=== PATIENT | female | born 1935 | race Caucasian/White ===

== ENCOUNTER 2020-06-16 08:26 | Inpatient (IN) | payer MEDICARE, BC ==
[2020-06-14 11:27] VITALS: BMI 24.4
[~2020-06-16 08:26] MED LIST: DEXAMETHASONE SOD PHOSPHATE 10 MG/ML 1 ML VIAL IV ONE; LACTATED RINGERS 1,000 ML IV SCH; LIDOCAINE 1% (10MG/ML) FOR IV START INTRADERMA PRN; ONDANSETRON 4 MG/2 ML VIAL IVP ONE
[2020-06-16] MEDS ORDERED: PHENAZOPYRIDINE 200 MG TAB PO ONE (10:00)
[2020-06-16] MEDS ORDERED: DEXTROSE 10% IN WATER 500 ML IV ONE (11:00)
[2020-06-16] MEDS ORDERED: fentaNYL (PF) 50 MCG/ML 2 ML AMP ONE (11:14)
[2020-06-16] MEDS ORDERED: FUROSEMIDE 10 MG/ML 2 ML VIAL ONE (11:14)
[2020-06-16] MEDS ORDERED: PROPOFOL 10 MG/ML 20 ML VIAL IV ONE (11:14)
[2020-06-16] MEDS ORDERED: ePHEDrine SULFATE/0.9% NACL/PF 50 MG/5 ML SYRINGE IV ONE (11:14)
[2020-06-16] MEDS ORDERED: MIDAZOLAM 2 MG/2 ML VIAL ONE (11:14)
[2020-06-16] MEDS ORDERED: LIDOCAINE 0.5%-EPI 1:200,000 50 ML VIAL SQ ONE ×2 (11:55)
[2020-06-16] MEDS ORDERED: LACTATED RINGERS 1,000 ML IV ONE (12:20)
[2020-06-16] MEDS ORDERED: BACITRACIN ZINC 500 UNIT/GM OINT 28.4 GM TUBE TOPICAL ONE (12:57)
[2020-06-16] MEDS ORDERED: ONDANSETRON 4 MG/2 ML VIAL IVP PRN (13:31)
[2020-06-16] MEDS ORDERED: METOCLOPRAMIDE 5 MG/ML 2 ML VIAL IVP PRN (13:31)
[2020-06-16] MEDS ORDERED: Acetaminophen-Codeine 300-30mg TAB PO PRN (13:31)
[2020-06-16] MEDS ORDERED: IBUPROFEN 600 MG TAB PO PRN (13:31)
[2020-06-16] MEDS ORDERED: HYDROmorphone 0.5 MG/0.5 ML SYRINGE IVP ONE ×2 (13:37→13:53)
[2020-06-16] MEDS ORDERED: ONDANSETRON 4 MG/2 ML VIAL IVP ONE (13:38)
[2020-06-16] MEDS ORDERED: SENNOSIDES 8.6 MG TAB PO PRN (13:41)
[2020-06-16] MEDS ORDERED: ACETAMINOPHEN TAB 500 MG TAB PO PRN (13:41)
[2020-06-16] MEDS ORDERED: MORPHINE SULFATE 2 MG/ML SYRINGE IVP PRN (13:42)
--- NOTE | 2020-06-16 14:11 | P.OP ---
Date of Procedure: 06/16/20 Anesthesia: spinal Description of Procedure: OP REPORT: TVH, BSO, Vaginal Uterosacral Ligament Suspension, TOT SLING PREOPERATIVE DIAGNOSES: 1. Uterovaginal Prolapse stage 3. 2. Mixed Incontinence (MARILYN + DI) POSTOPERATIVE DIAGNOSES: 1. same. PROCEDURE PERFORMED: Total vaginal hysterectomy / BSO / Uterosacral Ligament Suspension / TOT Sling SURGEON: Jose Padilla MD, [place] IN[employer]UMENTATION ENGINEERING TECHNICIAN: LIZZIE ANESTHESIA: SAB IV FLUIDS: crystalloids. BLOOD LOSS: 75 ml. DRAINS: Guevara catheter with clear urine at the end of the procedure. COMPLICATIONS: None. FINDINGS: Uterovaginal Prolapse. SPECIMEN: Uterus and cervix, Tubes and ovaries sent to Pathology. DISPOSITION: Postanesthetic Care Unit. DESCRIPTION OF PROCEDURE: The patient was brought to the operating room in good condition and adequate general anesthetic was obtained. The patient was positioned in the dorsal lithotomy position then prepped and draped in usual sterile fashion. The weighted speculum was placed in the posterior aspect of the vagina. The Guevara catheter was then inserted under sterile conditions and allowed to drain into a closed system throughout the procedure. The right-angle retractor was then placed and the anterior and posterior lips of the cervix were grasped with single-tooth tenaculum. The cervix was injected with Lidocaine with 1/200,000 epinephrine circumferentially. The uterus was mobilized downward. Care was taken to note the fold in the vaginal fornixes. Electrocautery was used to circumcise the cervix at the level of this fornix fold. The incision was carried all the way around the cervix. The remainder of the vaginal mucosa was dissected off the cervix by sharp dissection. In the posterior cul-de-sac, the peritoneum was entered with the Mullins scissors. This was spread bluntly with fingertip and a long weighted speculum was replaced in the vagina removing the short weighted speculum. The uterosacral ligaments bilaterally were crossclamped, transected, and tied off with 0-Vicryl sutures and held with hemostats. The anterior cervix was then visualized, anterior fornix and the peritoneal surface on the anterior fornix was entered with the Metzenbaum scissors. A Cheryl retractor was then placed in the anterior cul-de-sac to protect the bladder and ureters from injury. Additional sutures to the cardinal ligaments were taken bilaterally with the Timmy clamp, then the uterine vessels and then the tuboovarian round ligaments. On each side, the bite was taken, cross clamped, transected, and tied off with 0-Vicryl suture. This was done in a systematic fashion, alternating [id number] until the uterine fundus could be delivered through the posterior peritoneal opening. With the fundus delivered and the cervix directed into the pelvis, the fallopian tubes and round ligaments were visible bilaterally. The right fallopian tube and round ligament and infundibular pelvic ligaments were cross clamped, transected on the right. This pedicle was then tied off with 0- Vicryl suture. Transection of the left side was then similarly accomplished with two bites, these were each cross-clamped, transected, and tied off with 0-Vicryl suture. All pedicles were hemostatic. The specimen was thus removed and consisted of uterus, cervix and bilateral tubes and ovaries. The specimen was sent to pathology. The uterosacral sutures were identified and grasped with a long Allis clamp on the right side. 0 PDS suture was then placed from outside in at the right side of midline and posterior vaginal cuff and then brought through the right-sided uterosacral ligament approximately 2 cm inside from the original held suture from the hysterectomy the posterior peritoneum was then sutured with multiple sutures from right to left to close off the cul-de-sac one the PDS would be tied. The left-sided uterosacral ligament was identified and the same suture was brought through this ligament and then brought out from inside to out just to the left of midline and this was held. Next the right uterosacral ligament was grasped another 2 cm higher than the first and this was then attached to the anterior and posterior leaves of the vaginal cuff just lateral to the original detachment. Same procedure was carried on the opposite side. The original held uterosacral ligaments suture from the hysterectomy were then brought out through the corners anterior and posterior of each side of the vaginal mucosa. These sutures were then tied thereby affixing the corners to the uterosacral ligaments the higher Gaitan culdoplasty stitch in the midline in the midline were tied fixing the posterior vaginal cuff to the uterosacral ligaments and thereby plicating the uterosacral ligaments. Then each high uterosacral ligament suture were tied on each side pulling the vaginal vault up to a high level. The vaginal cuff edges were approximated given the timing of the above sutures and therefore suture was not needed to close this any further. The end result was a very nice apical suspension with the vaginal vault and a high level. This reduced the anterior vaginal wall relaxation nicely and there was no residual cystocele at this time. 10 mL of 0.5% Lidocaine with 1:200,000 strength epinephrine was injected into the anterior vaginal mucosa for hemostasis and to assist in dissection. A midline incision was made on the anterior vaginal mucosa overlying the mid-urethra. Allis clamps were placed on the edges and Metzenbaum scissors were used to separate the mucosa from the underlying tissue bilaterally. Next, a small incision was made in each groin at the Iliofemoral fold at the level of the clitoris just inferior to the tendinous insertion of the adductor longus muscle. With a vaginal finger to assist, the trocar needles were then passed through the groin incisions lateral to the inferior pubic ramus, passing through the obturator membrane, around the Ischiopubic Ramus to enter into the vagina lateral to the midurethra. This was done bilaterally. The Proline mesh tape was then connected to the end of each needle and drawn back through the vaginal incision and out of the groin incision thereby placing the mesh under the mid urethra. Tension of the mesh was adjusted and the plastic sheath over the mesh was then removed. The ends of the mesh at the groin incisions were trimmed below the skin surface. The vaginal incision was then closed using a 2-0 Vicryl in a running locking fashion. The groin incisions were then closed using an interrupted 4-0 Vicryl suture. Cystourethroscopy was performed verifying no injury to the urethra and bladder. Both ureters were found to be functioning well with good efflux bilaterally with the help of PO Pyridium and 10 mg of IV Lasix. A Bacitracin Ointment-soaked vaginal packing was placed. The patient tolerated the procedure well. Sponge, lab, and needle counts were correct x 2. She was sent to postanesthetic recovery room in good condition.
[2020-06-16] MEDS: LACTATED RINGERS 1,000 ML IV SCH ×2 (15:13→23:52)
[2020-06-16] MEDS ORDERED: ATORVASTATIN 10 MG TAB PO SCH (18:30)
[2020-06-17 07:44] VITALS: BP 130/81; PULSE 71; RESP 18; TEMP 98.3
--- NOTE | 2020-06-17 11:55 | P.PN ---
Progress Note - Text Progress Note Date: 06/17/20 POD #1 TVH/uterosacral ligament vaginal vault suspension/TOT sling. Patient is doing quite well without any complaints. She is ambulating she is eating and drinking she is voiding without any difficulty. Residual urines have been somewhat high although her preoperative history residual urine was elevated at 200 mL as well. Last void was 200 mL with 2 70 mL residual. The patient does not feel uncomfortable and does not feel the need to void. Denies any nausea or vomiting. Has negligible amount of pain. She has only taken regular Tylenol for pain control. Vaginal packing has been removed area Vital signs are stable urinary output is good patient is in no acute distress sitting comfortably. Abdomen is soft. Impressions: #1 POD #1 doing quite well. #2 elevated residual urine-patient may have some underlying voiding dysfunction versus elevated urine secondary to some swelling from the sling procedure. Patient has no difficulty in initiating her stream and her stream is a good flow she does not need to use any special maneuvers to void and therefore I doubt that the sling is obstructive. The fact that she is voiding 200 mL or more tells me that she should not get in trouble with urinary retention and I therefore elected not to reinsert the Guevara at this time. I've asked her to routinely double void for the next few days. Plans: Patient will be discharged home she has been told that if she has any difficulty with urination to go to urgent care for a Guevara catheter insertion. If she has any other problems or questions she has been given my cell phone number and told to give me a call. She'll return in 4 weeks to my office for her postoperative appointment.
--- NOTE | 2020-06-17 12:01 | P.DS ---
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 Her surgery went very well she has an excellent support and her examination showed no residual defects good depth and width of the vagina. Today she is postop day #1 her Guevara catheter has been removed and her vaginal packing has been removed. She is ambulating well eating, drinking and has negligible amount of pain. She has only taken regular Tylenol for pain control. She is voiding without difficulty and is voiding 200+ cc. Her residual urine is still elevated at 2 70 mL however, preoperative residual urine was 200 mL and therefore they may be somewhat of a voiding dysfunction inherent versus swelling from the sling procedure. The patient denies any difficulty with voiding she doesn't yet not need to change positions squats etc. and therefore think that is very safe to send her home without any additional bladder care such as reinsertion of the Guevara urinary intermittent self-catheterization. She has been counseled to double void routinely and if she did have urinary retention to directly go to urgent care for Guevara catheter. Patient be discharged home to follow up in 4 weeks in my office. Patient Condition at Discharge: Good Plan - Discharge Summary Discharge Rx Participant: No New Discharge Prescriptions: No Action lisinopriL [Zestril] 2.5 mg PO PC-SUPPER Lovastatin [Mevacor] 20 mg PO PC-SUPPER Acetaminophen [Tylenol Extra Strength] 500 mg PO DIRECTED PRN PRN Reason: Pain Sennosides [Senna] 8.6 mg PO DIRECTED PRN PRN Reason: Constipation Discharge Medication List Acetaminophen [Tylenol Extra Strength] 500 mg PO DIRECTED PRN 06/14/20 [History] Lovastatin [Mevacor] 20 mg PO PC-SUPPER 06/14/20 [History] Sennosides [Senna] 8.6 mg PO DIRECTED PRN 06/14/20 [History] lisinopriL [Zestril] 2.5 mg PO PC-SUPPER 06/14/20 [History]
== END 2020-06-17 12:15 | disposition home or self-care (01) | DRG 743 ==
LOC: 2ORMAIN 09:12 → 4FBP 13:28
PROVIDERS: ADMIT Obstetrics & Gynecology; ATTEND Obstetrics & Gynecology
PROC: 0UTC7ZZ Resection of Cervix, Via Natural or Artificial Opening (ICD-10-PCS; principal; 2020-06-16 11:00)
PROC: 0UT77ZZ Resection of Bilateral Fallopian Tubes, Via Natural or Artificial Opening (ICD-10-PCS; principal; 2020-06-16 11:00)
PROC: 0UT97ZZ Resection of Uterus, Via Natural or Artificial Opening (ICD-10-PCS; principal; 2020-06-16 11:00)
PROC: 0UT27ZZ Resection of Bilateral Ovaries, Via Natural or Artificial Opening (ICD-10-PCS; principal; 2020-06-16 11:00)
DX: N81.4 Uterovaginal prolapse, unspecified (principal); N39.46 Mixed incontinence; I10 Essential (primary) hypertension; E78.00 Pure hypercholesterolemia, unspecified; N83.201 Unspecified ovarian cyst, right side; M81.0 Age-related osteoporosis without current pathological fracture; K59.00 Constipation, unspecified; N72 Inflammatory disease of cervix uteri; Z82.49 Family history of ischemic heart disease and other diseases of the circulatory system; Z79.899 Other long term (current) drug therapy
CPT/HCPCS: 88307